=== PATIENT | male | born 1965 | race Caucasian/White ===

== ENCOUNTER 2018-11-14 15:34 | Emergency (ER) | payer OTHER ==
--- NOTE | 2018-11-14 17:19 | EDM.PDOC ---
ED HPI GENERAL MEDICAL PROBLEM - General Chief Complaint: ENT Problem Stated Complaint: SOB/SINUS PROBLEMS Time Seen by Provider: 11/14/18 16:06 Source of Information: Reports: Patient, RN Notes Reviewed History Limitations: Reports: No Limitations - History of Present Illness INITIAL COMMENTS - FREE TEXT/NARRATIVE: Patient is a 53 year old male who presents to the ED for the evaluation of increasing shortness of breath. He states that he had a recent sinus infection on 10/27. He was put on antibiotics for 10 days, and he felt better. After the finish of antibiotics, the patient is finding himself becoming increasingly short of breath. He notes that he was walking up an incline yesterday, and only went 500 steps and became extremely winded. He states that he has had some coughing, but denies fever/chills, chest pain, nausea/vomiting/diarrhea. His primary care provider is Dr. Drake. - Related Data Allergies Allergy/AdvReac Type Severity Reaction Status Date / Time No Known Allergies Allergy Verified 04/26/18 12:20 Home Meds: Home Meds Rivaroxaban [Xarelto] 15 mg PO BID #42 tablet 11/14/18 [Rx] Past Medical History HEENT History: Reports: Sinusitis - Past Surgical History HEENT Surgical History: Reports: Tonsillectomy GI Surgical History: Reports: Hernia, Abdominal, Hernia, Inguinal Social & Family History - Tobacco Use Smoking Status *Q: Never Smoker - Caffeine Use Caffeine Use: Reports: Coffee, Soda, Tea - Recreational Drug Use Recreational Drug Use: No ED ROS GENERAL - Review of Systems Review Of Systems: See Below Constitutional: Reports: No Symptoms HEENT: Reports: Sinus Problem (recent sinus infection). Denies: Throat Pain, Throat Swelling Respiratory: Reports: Shortness of Breath (with exercise). Denies: Wheezing, Cough Cardiovascular: Denies: Chest Pain, Lightheadedness, Orthopnea, Syncope Endocrine: Reports: No Symptoms GI/Abdominal: Reports: No Symptoms : Reports: No Symptoms Musculoskeletal: Reports: No Symptoms Skin: Reports: No Symptoms Neurological: Reports: No Symptoms Psychiatric: Reports: No Symptoms Hematologic/Lymphatic: Reports: No Symptoms Immunologic: Reports: No Symptoms ED EXAM, GENERAL - Physical Exam Exam: See Below Exam Limited By: No Limitations General Appearance: Alert, WD/WN, No Apparent Distress Eye Exam: Bilateral Eye: Normal Inspection Ears: Normal External Exam, Normal Canal, Hearing Grossly Normal, Normal TMs Nose: Normal Inspection, No Blood, Nasal Swelling (left nare, mild sinus inflammation). No: Nasal Tenderness Throat/Mouth: Normal Inspection, Normal Teeth, Normal Oropharynx, No Airway Compromise Head: Atraumatic, Normocephalic Neck: Normal Inspection, Supple, Non-Tender, Full Range of Motion Respiratory/Chest: No Respiratory Distress, Lungs Clear, Normal Breath Sounds, No Accessory Muscle Use, Chest Non-Tender Cardiovascular: Normal Peripheral Pulses, Regular Rate, Rhythm, No Murmur GI/Abdominal: Normal Bowel Sounds, Soft, Non-Tender, No Distention, No Mass Extremities: Normal Inspection, Normal Capillary Refill Neurological: Alert, Oriented, Normal Cognition, No Motor/Sensory Deficits Psychiatric: Normal Affect, Normal Mood Skin Exam: Warm, Dry, Intact, Normal Color, No Rash Lymphatic: No Adenopathy Course - Vital Signs Last Recorded V/S: Last Vital Signs Temp 97.6 F 11/14/18 15:59 Pulse 90 11/14/18 15:59 Resp 20 11/14/18 15:59 BP 140/100 H 11/14/18 15:59 Pulse Ox 92 L 11/14/18 15:59 - Orders/Labs/Meds Orders: Active Orders 24 hr Category Date Time Status Chest 2V [CR] Stat Exams 11/14/18 17:12 Ordered Sodium Chloride 0.9% [Saline Flush] Med 11/14/18 19:03 Active 10 ml FLUSH ASDIRECTED PRN Medication Orders Sodium Chloride (Saline Flush) 10 ml FLUSH ASDIRECTED PRN PRN Reason: Keep Vein Open Last Admin: 11/14/18 19:03 Dose: 10 ml Labs: Laboratory Tests 11/14/18 11/14/18 11/14/18 Range/Units 17:27 17:27 17:27 WBC 9.16 H (4.23-9.07) K/mm3 RBC 5.82 (4.63-6.08) M/mm3 Hgb 17.7 H (13.7-17.5) gm/L Hct 51.2 H (40.1-51.0) % MCV 88.0 (79.0-92.2) fl MCH 30.4 (25.7-32.2) pg MCHC 34.6 (32.2-35.5) g/dl RDW Std Deviation 41.7 (35.1-43.9) fL Plt Count 204 (163-337) K/mm3 MPV 9.3 L (9.4-12.3) fl Neutrophils % (Manual) 70 H (40-60) % Band Neutrophils % 0 (0-10) % Lymphocytes % (Manual) 23 (20-40) % Atypical Lymphs % 0 % Monocytes % (Manual) 5 (2-10) % Eosinophils % (Manual) 2 (0.8-7.0) % Basophils % (Manual) 0 L (0.2-1.2) Platelet Estimate Adequate RBC Morph Comment Normal D-Dimer, Quantitative 4.90 H (0.19-0.50) mg/L Sodium 142 (136-145) mEq/L Potassium 4.3 (3.5-5.1) mEq/L Chloride 104 (98-107) mEq/L Carbon Dioxide 26 (21-32) mEq/L Anion Gap 16.3 H (5-15) BUN 15 (7-18) mg/dL Creatinine 1.1 (0.7-1.3) mg/dL Est Cr Clr Drug Dosing 69.28 mL/min Estimated GFR (MDRD) > 60 (>60) mL/min BUN/Creatinine Ratio 13.6 L (14-18) Glucose 92 (74-106) mg/dL Calcium 9.2 (8.5-10.1) mg/dL Total Bilirubin 0.4 (0.2-1.0) mg/dL AST 23 (15-37) U/L ALT 36 (16-63) U/L Alkaline Phosphatase 147 H (46-116) U/L Total Protein 7.3 (6.4-8.2) g/dl Albumin 4.0 (3.4-5.0) g/dl Globulin 3.3 gm/dL Albumin/Globulin Ratio 1.2 (1-2) Meds: Medications Generic Name Dose Route Start Last Admin Trade Name Freq PRN Reason Stop Dose Admin Sodium Chloride 10 ml 11/14/18 19:03 11/14/18 19:03 Saline Flush FLUSH 10 ml ASDIRECTED PRN Administration Keep Vein Open Discontinued Medications Generic Name Dose Route Start Last Admin Trade Name Freq PRN Reason Stop Dose Admin Sodium Chloride 100 mls @ 4 mls/sec 11/14/18 18:22 11/14/18 19:02 Normal Saline IV 11/14/18 18:23 4 mls/sec ONETIME ONE Administration Iopamidol 100 ml 11/14/18 18:22 11/14/18 19:02 Isovue-370 (76%) IVPUSH 11/14/18 18:23 100 ml ONETIME ONE Administration Rivaroxaban 10 mg 11/14/18 19:35 11/14/18 19:54 Xarelto PO 11/14/18 19:36 10 mg ONETIME ONE Administration - Radiology Interpretation Free Text/Narrative:: CT chest Technique: Multiple axial sections of the chest were obtained. Intravenous contrast was utilized. Study performed as a pulmonary angiogram protocol. Findings: Pulmonary emboli are identified within the distal right main pulmonary artery with pulmonary emboli extending into the segmental branches of the right upper and right lower lung as well as subsegmental branches within the right lower lung. Pulmonary emboli also noted within the distal left main pulmonary artery extending into the segmental and subsegmental branches of the left lower lobe and lingula. Lesser pulmonary emboli are seen within other portions of the left upper lung. Mediastinum and hilar regions show no adenopathy or mass. No pericardial thickening is seen. Small portion the visualized upper abdominal structures appear within normal limits. No evidence of right heart strain is seen at this time. Minimal left basilar atelectasis is seen. Lungs otherwise are clear. No pleural effusions are seen. Bone window settings shows scattered degenerative endplate spurring within the spine. Impression: 1. Extensive bilateral pulmonary emboli. No evidence of right heart strain seen at this time. 2. Other incidental findings as noted above. - Re-Assessments/Exams Free Text/Narrative Re-Assessment/Exam: 11/14/18 17:18 Pt presents to the ED for the evaluation of increasing SOB. Etiology is unclear , have ordered CBC, CMP, d-dimer and CXR for further evaluation. 11/14/18 18:20 D-dimer is resulted at is 4.9, will order CT angio of chest to evaluate for PE. 11/14/18 21:16 CT has been done, and the patient has multiple PE's. He will be started on xarelto 10mg PO and will be directed to follow up with his PCP by the end of this week for further evaluation of PE development. Pt questions were sought and answered. There was an extensive conversation regarding the initiation of xarelto to prevent further clotting. Departure - Departure Time of Disposition: 21:18 Disposition: Home, Self-Care 01 Condition: Fair Clinical Impression: Pulmonary emboli Qualifiers: Pulmonary embolism type: other Chronicity: acute Acute cor pulmonale presence: without acute cor pulmonale Qualified Code(s): I26.99 - Other pulmonary embolism without acute cor pulmonale - Discharge Information *PRESCRIPTION DRUG MONITORING PROGRAM REVIEWED*: No *COPY OF PRESCRIPTION DRUG MONITORING REPORT IN PATIENT KEVEN: No Instructions: Pulmonary Embolism, D-Dimer Test Referrals: Sergio Baxter MD [Primary Care Provider] - Forms: ED Department Discharge Additional Instructions: You have been evaluated in the ED for increasing shortness of breath. Your labs and CT done today indicated that you have multiple pulmonary embolus in both of your lungs. You have been provided with a prescription for Xarelto, this is a blood thinner that will prevent clots from forming in your blood. Please take this medication as prescribed until you are directed otherwise by your primary care provider. Please follow up with your primary care provider Dr. Sergio Drake by the end of this week if possible for a clotting factor workup, this may include Factor V Leiden deficiency, Protein C deficiency, protein S deficiency, and/or anti- thrombin III. Please return to ER if your symptoms should change or worsen. - My Orders Last 24 Hours: My Active Orders 11/14/18 17:12 Chest 2V [CR] Stat 11/14/18 19:03 Sodium Chloride 0.9% [Saline Flush] 10 ml FLUSH ASDIRECTED PRN - Assessment/Plan Last 24 Hours: My Active Orders 11/14/18 17:12 Chest 2V [CR] Stat 11/14/18 19:03 Sodium Chloride 0.9% [Saline Flush] 10 ml FLUSH ASDIRECTED PRN
[2018-11-14] MEDS ORDERED: Sodium Chloride 0.9% 100 ML IV ONE (18:22)
[2018-11-14] MEDS ORDERED: Iopamidol 755 Mg/ML 100 ML Bottle IVPUSH ONE (18:22)
[2018-11-14] MEDS ORDERED: Sodium Chloride 0.9% 10 ML Syringe FLUSH PRN (19:03)
--- NOTE | 2018-11-14 19:32 | CT ---
CT chest Technique: Multiple axial sections of the chest were obtained. Intravenous contrast was utilized. Study performed as a pulmonary angiogram protocol. Findings: Pulmonary emboli are identified within the distal right main pulmonary artery with pulmonary emboli extending into the segmental branches of the right upper and right lower lung as well as subsegmental branches within the right lower lung. Pulmonary emboli also noted within the distal left main pulmonary artery extending into the segmental and subsegmental branches of the left lower lobe and lingula. Lesser pulmonary emboli are seen within other portions of the left upper lung. Mediastinum and hilar regions show no adenopathy or mass. No pericardial thickening is seen. Small portion the visualized upper abdominal structures appear within normal limits. No evidence of right heart strain is seen at this time. Minimal left basilar atelectasis is seen. Lungs otherwise are clear. No pleural effusions are seen. Bone window settings shows scattered degenerative endplate spurring within the spine. Impression: 1. Extensive bilateral pulmonary emboli. No evidence of right heart strain seen at this time. 2. Other incidental findings as noted above. Diagnostic code #5
[2018-11-14] MEDS ORDERED: Rivaroxaban 10 MG Tab PO ONE (19:35)
--- NOTE | 2018-11-15 07:05 | CR ---
Chest: Two views of the chest were obtained. Comparison: No prior chest x-ray. Heart size and mediastinum are within normal limits. Lungs are clear with no acute parenchymal change. Bony structures appear within normal limits for the patient's age. Incidental note of slight scoliosis. Impression: 1. Incidental finding. Nothing acute is seen. Diagnostic code #2
== END 2018-11-14 22:20 | disposition home or self-care (01) ==
LOC: JD.ED 15:34
DX: I26.99 Other pulmonary embolism without acute cor pulmonale (principal); Z90.89 Acquired absence of other organs
CPT/HCPCS: 36415; 71046; 71275; 80053; 85007; 85027; 85379; 99285; A9270; J7030; Q9967; 99284

== ENCOUNTER 2022-07-04 20:52 | Emergency (ER) | payer OTHER | END 2022-07-04 23:32 | LOC: JD.ED 20:52 | DX: Z53.21 Procedure and treatment not carried out due to patient leaving prior to being seen by health care provider (principal) ==

== ENCOUNTER 2022-09-12 14:39 | Emergency (ER) | payer OTHER | END 2022-09-12 17:05 | disposition home or self-care (01) | LOC: JD.ED 14:39 | DX: K59.03 Drug induced constipation (principal); T50.995A Adverse effect of other drugs, medicaments and biological substances, initial encounter; Z79.01 Long term (current) use of anticoagulants | CPT/HCPCS: 74019; 74019-26; 99283 ==

== ENCOUNTER 2024-03-15 17:17 | Emergency (ER) | payer OTHER ==
[2024-03-15] MEDS ORDERED: Sodium Chloride 0.9% 10 ML Syringe FLUSH PRN (17:49)
[2024-03-15 18:11] LABS: BASOPHILS PERCENT AUTO 0.1 % (0.0-1.0); EOSINOPHILS PERCENT AUTO 0.2 % (0.0-6.0); HEMATOCRIT 30.3 % (42.0-52.0); HEMOGLOBIN 9.7 gm/dl (14.0-18.0); IMMATURE GRAN ABSOLUTE AUTO 0.14 K/mm3 (0.00-0.05); IMMATURE GRAN PERCENT AUTO 1.7 % (0.0-0.4); LYMPHOCYTES ABSOLUTE AUTO 0.3 K/mm3 (1.0-4.8); LYMPHOCYTES PERCENT AUTO 3.2 % (24.0-44.0); MEAN CORPUSCULAR HEMOGLOBIN 29.2 pg (28.0-32.0); MEAN CORPUSCULAR VOLUME 91.3 fl (83.0-99.0); MEAN PLATELET VOLUME 8.8 fl (9.4-12.4); MONOCYTES ABSOLUTE AUTO 0.4 K/mm3 (0.0-0.8); MONOCYTES PERCENT AUTO 4.4 % (0.0-8.0); NEUTROPHILS ABSOLUTE AUTO 7.6 K/mm3 (1.8-7.7); NEUTROPHILS PERCENT AUTO 90.4 % (41.0-71.0); NRBC ABSOLUTE 0.03 (0.00-0.02); NRBC PERCENT 0.4 % (0.0-0.2); PLATELET COUNT,PLT 117 K/mm3 (150-400); RED BLOOD CELL COUNT 3.32 M/mm3 (4.52-5.90); WHITE BLOOD CELL COUNT,WBC 8.37 K/mm3 (3.9-11.3)
[2024-03-15] MEDS ORDERED: Sodium Chloride 0.9% 100 ML IV SCH (18:30)
[2024-03-15 18:49] LABS: LACTIC ACID 1.1 mmol/L (0.4-2.0)
[2024-03-15] MEDS: Iopamidol 755 Mg/ML 100 ML Bottle IVPUSH ONE (18:54)
[2024-03-15 18:55] LABS: A/G RATIO 0.5 (1-2); ALBUMIN 1.9 g/dl (3.4-5.0); ANION GAP 13.3 (5-15); BILIRUBIN TOTAL 0.3 mg/dL (0.2-1.0); BUN/CREATININE RATIO 17.1 (14-18); C-REACTIVE PROTEIN 12.11 mg/dL (<0.30); CALCIUM 8.7 mg/dL (8.5-10.1); CREATININE 1.4 mg/dL (0.7-1.3); EST CRCL DRUG DOSING (CG) 49.18 mL/min; POTASSIUM,K 4.3 mEq/L (3.5-5.1); PROTEIN TOTAL,TP 6.1 g/dl (6.4-8.2)
[2024-03-15 19:33] LABS: SLIDE REVIEW ABNORMAL SMEAR
[2024-03-15] MEDS: Sodium Chloride 0.9% 1,000 ML IV SCH (20:00)
[2024-03-15] MEDS: cefTRIAXone 2 GM in Sodium Chloride 0.9% 100 ML IV ONE (20:01)
== END 2024-03-15 22:28 | disposition home or self-care (01) ==
LOC: JD.ED 17:17
DX: J18.9 Pneumonia, unspecified organism (principal); R09.02 Hypoxemia; Z91.048 Other nonmedicinal substance allergy status; Z79.899 Other long term (current) drug therapy; Z79.01 Long term (current) use of anticoagulants
CPT/HCPCS: 36415; 71275; 80053; 83605; 83880; 85025; 85379; 86140; 93005; 96361; 96365; 99285; J0696; J3490; J7030; Q9967; 93010; 99284

== ENCOUNTER 2024-03-25 12:09 | Emergency (ER) | payer OTHER ==
[2024-03-25 13:31] LABS: BASOPHILS PERCENT AUTO 0.2 % (0.0-1.0); HEMATOCRIT 32.2 % (42.0-52.0); HEMOGLOBIN 10.2 gm/dl (14.0-18.0); IMMATURE GRAN ABSOLUTE AUTO 0.26 K/mm3 (0.00-0.05); IMMATURE GRAN PERCENT AUTO 1.9 % (0.0-0.4); LYMPHOCYTES ABSOLUTE AUTO 0.5 K/mm3 (1.0-4.8); LYMPHOCYTES PERCENT AUTO 3.2 % (24.0-44.0); MEAN CORPUSCULAR HEMOGLOBIN 28.6 pg (28.0-32.0); MEAN CORPUSCULAR HGB CONC 31.7 g/dl (32.0-36.0); MEAN CORPUSCULAR VOLUME 90.2 fl (83.0-99.0); MEAN PLATELET VOLUME 9.1 fl (9.4-12.4); MONOCYTES ABSOLUTE AUTO 0.7 K/mm3 (0.0-0.8); MONOCYTES PERCENT AUTO 5.1 % (0.0-8.0); NEUTROPHILS ABSOLUTE AUTO 12.4 K/mm3 (1.8-7.7); NEUTROPHILS PERCENT AUTO 89.6 % (41.0-71.0); PLATELET COUNT,PLT 112 K/mm3 (150-400); RED BLOOD CELL COUNT 3.57 M/mm3 (4.52-5.90); WHITE BLOOD CELL COUNT,WBC 13.88 K/mm3 (3.9-11.3)
[2024-03-25 14:26] LABS: A/G RATIO 0.5 (1-2); ALBUMIN 1.9 g/dl (3.4-5.0); ANION GAP 11.2 (5-15); BILIRUBIN TOTAL 0.3 mg/dL (0.2-1.0); BUN/CREATININE RATIO 22.4 (14-18); CALCIUM 8.6 mg/dL (8.5-10.1); CREATININE 1.7 mg/dL (0.7-1.3); EST CRCL DRUG DOSING (CG) 39.08 mL/min; POTASSIUM,K 4.2 mEq/L (3.5-5.1); PROTEIN TOTAL,TP 5.4 g/dl (6.4-8.2)
[2024-03-25 17:20] LABS: MAGNESIUM 2.1 mg/dL (1.8-2.4); PHOSPHORUS 3.7 mg/dL (2.6-4.7)
[2024-03-25 18:00] LABS: LACTIC ACID 2.3 mmol/L (0.4-2.0)
[2024-03-25] MEDS: Sodium Chloride 0.9% 100 ML IV SCH (18:49)
[2024-03-25] MEDS: Iopamidol 755 Mg/ML 100 ML Bottle IVPUSH ONE (18:49)
[2024-03-25] MEDS: Sodium Chloride 0.9% 1,000 ML IV ONE (18:54)
[2024-03-25] MEDS: Pantoprazole 40 MG Vial IVPUSH ONE (18:55)
[2024-03-25 19:07] LABS: CORONAVIRUS COVID-19 NAA NEGATIVE (NEGATIVE); INFLUENZA A NAA NEGATIVE (NEGATIVE); RESPIRATORY SYNCYTIAL VIR NAA NEGATIVE (NEGATIVE)
== END 2024-03-25 20:32 | disposition home or self-care (01) ==
LOC: JD.ED 12:09
DX: K92.2 Gastrointestinal hemorrhage, unspecified (principal); Z91.048 Other nonmedicinal substance allergy status; Z91.018 Allergy to other foods; Z79.01 Long term (current) use of anticoagulants; Z79.899 Other long term (current) drug therapy
CPT/HCPCS: 0241U; 36415; 71275; 80053; 82272; 83605; 83735; 84100; 85025; 85379; 85730; 87040; 96361; 96374; 99285; C9113; J3490; J7030; Q9967